=== PATIENT | male | born 1965 | race Two or more races ===

== ENCOUNTER 2024-05-21 08:08 | Outpatient (AMB) | payer MEDICAID, SELFPAY ==
--- NOTE | 2024-05-21 08:21 | ORTHONT_ITS ---
Vital signs 05/21/24 08:26 Height 1.68 m Height Method Stated Weight 79.407 kg Weight Measurement Method Standing Scale BMI 28.1 BP 174/85 H Blood Pressure Source Automatic Cuff Blood Pressure Location Right Upper Arm Position Sitting Respiration 18 Pulse 56 L Pulse Source Monitor Temp 97.2 F Temp Source Temporal Artery Scan Pulse Oximetry (%) 98 Oxygen Delivery Method Room Air Med/Allergies Allergies & Medications Allergies No Known Allergies Allergy (Verified 05/21/24 08:26) Medication Reconciliation meloxicam 7.5 mg tablet 7.5 mg PO QDAY #45 tabs 09/26/23 [Rx Confirmed 01/11/24] lisinopril 10 mg tablet 10 mg PO BID 10/27/23 [History Confirmed 05/21/24] meloxicam 7.5 mg tablet 7.5 mg PO QDAY #45 tabs 01/11/24 [Rx] Exam Exam Patient is in no acute distress and is cooperative with the examination today. Breathing is nonlabored. Patient has a normal mood and affect. Bilateral extremities were evaluated and demonstrates sensation intact to light touch. Palpable pedal pulses are present. No significant edema is present. Bilateral hips were examined. The patient has no pain with log roll of the hips. Internal rotation to 30 degrees and external rotation to 30 degrees is painless. Negative FADIR. Right knee was examined today. The right knee is in reasonable alignment. Range of motion from 0-120 degrees. Knee is stable to varus and valgus as well as AP translation with <5mm. Patient has a negative McMurrays. There is no pain with patellofemoral compression and no crepitus noted. The knee is nontender to palpation. Left knee was examined today. The left knee is in [varus] alignment. Range of motion from [0-115] degrees. Knee is stable to varus and valgus as well as AP translation with <5mm. Patient has a [negative] McMurrays. There is [no] pain with patellofemoral compression and [no] crepitus noted. The knee is [tender] to palpation [medially] X-rays demonstrate mild to moderate joint space narrowing. He also has an MRI demonstrates a lateral posterior horn Here from [facility] imaging Assessment and Plan Problem List (1) Arthritis of left knee: Status: Acute Plan: Patient is a 58-year-old male With significant left knee pain and left knee arthritis. The left knee pain is affecting his quality life and happiness. His x-rays demonstrate mild to moderate joint space narrowing. I discussed with him that his x-ray findings are nonsignificant. We discussed the natural history of degenerative meniscal tear. We recommend nonoperative treatment. We discussed anti-inflammatories injections and physical therapy. He would like a repeat injection as he had excellent relief with the last one. Recommend knee cortisone injection as patient would like to proceed with conservative treatment at this time. The risks and benefits of the procedure were reviewed with the patient and patient gave verbal consent to continue with the procedure. Procedure: performed by Dr. Chong Using sterile technique the left knee was thoroughly prepped with alcohol, and approximately 1 cc of Kenalog 40 mg/mL and 4 cc of 1% lidocaine was injected without resistance into the medial tibial femoral joint space. The patient tolerated the procedure. (2) Pain in left knee: Status: Acute Office Procedures GNS Level of Care Nursing/Assessment Patient Status: Established Patient Nursing Assessment/Reassesment: Medication Reconciliation, Update PMH in EMR and Vital Signs Coordination of Care: Complex Care and Chronic Disease 1-5, Education Complex Pt/Fam, Consent,records obtained, informed consent, Results/Orders obtained and Staff clarify orders Special Needs: Language special needs Established Patient Charge Established Patient Point Assignment: 95 Established Patient Point Charge: EP Level 3 (80-115) Surgical Proc/IM SQ injection Major Surgical Procedure: Yes (KNEE INJECTION ) Medication Given Medication Given Medication Given: Yes Documented Dose Given: 4 Route: Infiitration Medication Given Medication Given Medication Given: Yes Documented Dose Given: 1 Route: Infiitration Office Meds Xylocaine 10 mg/mL (1 %) injection solution Performing Provider: Gustavo Chong MD Performing Location: [facility] Administered by: Gustavo Chong MD on 05/21/24 08:31 Dose Route Admin Location Dispensed Lot Number Expiration Date [facility] Crossbow Maker 20 mL Infiltration 20 mL [id number] [employer]A triamcinolone acetonide 40 mg/mL suspension for injection Performing Provider: Gustavo Chong MD Performing Location: [facility] Administered by: Gustavo Chong MD on 05/21/24 08:31 Dose Route Admin Location Dispensed Lot Number Expiration Date [facility] Crossbow Maker 40 mg intra-articular LEFT KNEE 1 mL [id number] 08/29/25 2978-3768-94 [employer] [place] Intake Visit Data Collection New Patient or Established: Established Patient (seen at [facility] within 3 years) Reason for Visit:: LEFT KNEE INJECTION Seen by Clinical Staff ONLY (RN/MA): No Verbal consent obtained for Telemed visit?: No Bilingual Call Center Representative Required: Yes PCP or OBGYN visit in last 3 months: Yes Hx Now: No Do You Feel Safe at Home: Yes Authorities Contacted: N/A Questionairres Past Medical History Past Medical History Have you ever been diagnosed with any of the following: Neurological Problems Seizures: No Cardiology Problems Hypercholesterolemia: Yes (STOP MED 08/19) Congestive Heart Failure: No Respiratory Problems Chronic Obstructive Pulmonary Disease (COPD): No Asthma: No Smoking: No Smoking Exposure: No Stomache/Intestinal Problems Hepatitis: No Gall Bladder Disease: Yes (FOR THIS PROC) Genital/Urinary Problems Renal Disease: No Inguinal Hernia: Yes Endocrine Problems Diabetes Mellitus Type 1: No Diabetes Mellitus Type 2: No Blood Problems Sickle Cell Disease: No Other Problems Hospitalization: No Shingles: No Falls: No Blood Transfusions: No Blood Transfusion Reaction: No Anesthesia Reactions: No MRSA: No Chicken Pox: Yes Measles: No Mumps: No Clostridium Difficile: No Cancer: No Subjective Visit Visit for: follow up visit, knee and injections Immunization / Flu Flu Vaccine in the Last 12 Months: Yes Flu Vaccine Exclusion Criteria: Already Received History of Present Illness Chief complaint: left knee pain Irvin is a pleasant 58-year-old male with left knee pain. He had a arthroscopic meniscectomy [address] Arciniega. He now has significant left knee pain. He has varus deformity. The pain is affecting his quality life and happiness. He Was sent to physical therapy who referred him here because he did not think that the therapy was providing benefit. He did well with the last injection and would like another 1 today Pain Pain level (0-10): 0 Pain duration: NONE Pain quality: dull Ambulatory data Ambulatory device: none Treatments Number of previous injections: 2 Improvement with previous injections: Yes Improvement with PT: No Improvement with NSAIDS: no Review of Systems Review of Systems: All systems negative unless otherwise noted in HPI.
[2024-05-21 08:26] VITALS: BP 174/85; PULSE 56; RESP 18; TEMP 36.2; O2SAT 98; BMI 28.1
== END 2024-05-21 08:36 | disposition home or self-care (01) ==
PROVIDERS: PCP Family Medicine; Referring Provider Family Medicine; Supervising Provider Orthopaedic Surgery Adult Reconstructive Orthopaedic Surgery; Visit Provider Orthopaedic Surgery Adult Reconstructive Orthopaedic Surgery
DX: M17.12 Unilateral primary osteoarthritis, left knee (principal); M25.562 Pain in left knee; M21.10 Varus deformity, not elsewhere classified, unspecified site; E78.00 Pure hypercholesterolemia, unspecified
CPT/HCPCS: 20610; 99213; J3301; J3490; G0463